=== PATIENT | female | born 1950 | race African-American/Black ===

== ENCOUNTER 2022-04-23 11:27 | Inpatient (IN) | payer OTHER, MEDICARE ==
[~2022-04-23] VITALS: Ht 175.3 cm; Wt 142.9 kg
[2022-04-23] MEDS ORDERED: SODIUM CHLORIDE 0.9% 1,000 ML IV ONE (12:00)
[2022-04-23] MEDS ORDERED: LABETALOL 5MG/ML SYR 20 MG/4 ML SYRINGE IV ONE (12:15)
[2022-04-23 12:53] LABS: CHLORIDE 97 mEq/L (98-107)
[2022-04-23 12:56] LABS: PROTHROMBIN TIME 10.5 sec (9.6-11.0)
[2022-04-23 13:01] LABS: BASOPHILS % 0.8 % (0.0-2.0); BETA HYDROXYBUTYRATE 1.2 mMol/L (0.0-0.3); EOSINOPHILS % 0.1 % (0.0-5.0); ETHANOL BLOOD < 10 mg/dL; HEMATOCRIT. 33.3 % (36.0-48.0); MEAN CORPUSCULAR HEMOGLOBIN 20.5 pg (28.0-32.0); MEAN CORPUSCULAR VOLUME 68.3 fL (81.0-99.0); MEAN PLATELET VOLUME 8.7 fl (7.4-10.4); MONOCYTES % 5.2 % (2.0-8.0); NEUTROPHILS % 79.9 % (40.0-76.0); PLATELET 374 x1000/uL (130-400); RED BLOOD CELL COUNT 4.88 mill/uL (4.2-5.4)
[2022-04-23] MEDS ORDERED: INSULIN REGULAR (HUMULIN R) 300UNITS/3ML VIAL IV ONE (13:30)
[2022-04-23 13:33] LABS: PLATELET ESTIMATE NORMAL
[2022-04-23] MEDS ORDERED: LABETALOL 5MG/ML SYR 20 MG/4 ML SYRINGE IV NR (14:00)
[2022-04-23] MEDS: NITROGLYCERIN 0.1MG/HR PATCH TOP SCH (17:30)
[2022-04-23] MEDS ORDERED: ACETAMINOPHEN 650MG/20.3ML UDC PO PRN (17:45)
[2022-04-23] MEDS ORDERED: ACETAMINOPHEN 325MG TABLET PO PRN (19:30)
[2022-04-23] MEDS ORDERED: PIPERACILLIN/TAZ 3.375G PREMIX 50 ML IV SCH (19:30)
[2022-04-23] MEDS ORDERED: DOCUSATE SODIUM 100MG CAPSULE PO PRN (19:30)
[2022-04-23] MEDS: ATORVASTATIN CALCIUM 40MG TABLET PO SCH (21:00)
[2022-04-23 21:19] VITALS: BP 203/107
[2022-04-23 21:24] VITALS: BP 209/79
[2022-04-23 21:28] VITALS: BP 185/79
[2022-04-23] MEDS: ENOXAPARIN 40MG/0.4ML SYR SUBCUT SCH (21:39)
[2022-04-23] MEDS: FAMOTIDINE 20MG/2ML VIAL IV SCH (21:39)
[2022-04-23 22:00] VITALS: BP 199/85
[2022-04-23] MEDS: NITROGLYCERIN OINT 1GM/INCH UDPKT TD PRN (22:13)
[2022-04-23 22:33] VITALS: BP 195/107
[2022-04-23] MEDS: PIPERACILLIN/TAZOBACTAM 3.375G in DEXT 5% WATER 50ML IV SCH (22:48)
[2022-04-23] MEDS: METOPROLOL TARTRATE 5MG/5ML VIAL IV PRN (22:49)
[2022-04-23 22:54] VITALS: BP 187/78
[2022-04-23] MEDS ORDERED: THIAMINE HCL 100 MG in SODIUM CHLORIDE 0.9% 49 ML IV NR (23:00)
[2022-04-23] MEDS ORDERED: DEXTROSE 50% WATER 50ML SYRINGE IV PRN ×2 (23:00→23:15)
[2022-04-23] MEDS: SODIUM CHLORIDE 0.9% 1,000 ML IV SCH (23:07)
[2022-04-24] VITALS (13 sets, daily range): BP systolic 134–203; BP diastolic 54–128
[2022-04-24] MEDS: LOSARTAN POTASSIUM 100 MG TABLET PO SCH ×2 (02:38→10:04)
[2022-04-24 05:14] LABS: CLARITY URINE CLOUDY (CLEAR); COLOR URINE YELLOW (YELLOW); KETONES URINE 2+ (NEGATIVE); LEUKOCYTE ESTERASE URINE 2+ (NEGATIVE); NITRITE URINE NEGATIVE (NEGATIVE); OCCULT BLOOD URINE 2+ (NEGATIVE); PROTEIN URINE 2+ (NEGATIVE); SPECIFIC GRAVITY URINE 1.024 (1.005-1.030); UROBILINOGEN URINE 0.2 E.U./dL (0.2-1.0)
[2022-04-24 05:36] LABS: *AMPHETAMINES SCREEN URINE NEGATIVE (NEGATIVE); *BARBITURATES SCREEN URINE NEGATIVE (NEGATIVE); *BENZODIAZEPINES SCREEN URINE NEGATIVE (NEGATIVE); *COCAINE SCREEN URINE NEGATIVE (NEGATIVE); CANNABINOID URINE SCREEN NEGATIVE (NEGATIVE); METHADONE URINE SCREEN NEGATIVE (NEGATIVE); OPIATES URINE SCREEN NEGATIVE (NEGATIVE); PHENCYCLIDINE URINE SCREEN NEGATIVE (NEGATIVE)
[2022-04-24] MEDS: PIPERACILLIN/TAZOBACTAM 3.375G in DEXT 5% WATER 50ML IV SCH ×3 (05:47→21:07)
[2022-04-24] MEDS: METOPROLOL TARTRATE 5MG/5ML VIAL IV PRN ×2 (06:34→13:08)
[2022-04-24 06:40] LABS: BASOPHILS % 0.6 % (0.0-2.0); HEMATOCRIT. 27.9 % (36.0-48.0); HEMOGLOBIN. 8.5 g/dL (12.0-16.0); LYMPHOCYTES % 24.2 % (20.0-50.0); MEAN CORPUSCULAR HEMOGLOBIN 21.1 pg (28.0-32.0); MEAN CORPUSCULAR VOLUME 69.3 fL (81.0-99.0); MEAN PLATELET VOLUME 8.5 fl (7.4-10.4); MONOCYTES % 9.3 % (2.0-8.0); NEUTROPHILS % 65.9 % (40.0-76.0); PLATELET 334 x1000/uL (130-400); RED BLOOD CELL COUNT 4.03 mill/uL (4.2-5.4)
[2022-04-24] MEDS ORDERED: BLOOD SUGAR DIAGNOSTIC STRIP TEST SCH (07:30)
[2022-04-24] MEDS: BLOOD SUGAR DIAGNOSTIC STRIP TEST SCH ×4 (07:30→21:57)
[2022-04-24] MEDS ORDERED: INSULIN LISPRO 100 UNITS/ML SUBCUT SCH (08:00)
[2022-04-24 08:39] LABS: VITAMIN B12 SERUM 303 pg/mL (211-911)
[2022-04-24] MEDS: INSULIN LISPRO 100 UNITS/ML SUBCUT SCH ×4 (09:58→22:21)
[2022-04-24] MEDS ORDERED: INSULIN GLARGINE 100 UNITS/ML SUBCUT SCH (10:00)
[2022-04-24] MEDS: ENOXAPARIN 40MG/0.4ML SYR SUBCUT SCH ×2 (10:04→21:06)
[2022-04-24] MEDS: FAMOTIDINE 20MG/2ML VIAL IV SCH ×2 (10:04→21:06)
[2022-04-24] MEDS: ASPIRIN 325MG EC TABLET PO SCH (10:04)
[2022-04-24] MEDS: SODIUM CHLORIDE 0.9% 1,000 ML IV SCH ×3 (10:05→21:28)
[2022-04-24] MEDS: ATORVASTATIN CALCIUM 40MG TABLET PO SCH (21:07)
[2022-04-24] MEDS: METOPROLOL TARTRATE 50MG TABLET PO SCH (21:07)
[2022-04-24] MEDS: INSULIN GLARGINE 100 UNITS/ML SUBCUT SCH (22:21)
[2022-04-25] VITALS (17 sets, daily range): BP systolic 122–214; BP diastolic 46–95
[2022-04-25] MEDS: METOPROLOL TARTRATE 5MG/5ML VIAL IV PRN ×3 (04:33→22:45)
[2022-04-25] MEDS: PIPERACILLIN/TAZOBACTAM 3.375G in DEXT 5% WATER 50ML IV SCH ×3 (05:16→21:30)
[2022-04-25] MEDS: SODIUM CHLORIDE 0.9% 1,000 ML IV SCH ×2 (06:14→21:30)
[2022-04-25 06:16] LABS: HEMATOCRIT 28.7 % (36.0-48.0); HEMOGLOBIN 8.7 g/dL (12.0-16.0); MEAN CORPUSCULAR HEMOGLOBIN 21.2 pg (28.0-32.0); MEAN CORPUSCULAR VOLUME 70.1 fL (81.0-99.0); PLATELET 318 x1000/uL (130-400); RED CELL DISTRIBUTION WIDTH 20.6 % (11.6-14.6)
[2022-04-25] MEDS: BLOOD SUGAR DIAGNOSTIC STRIP TEST SCH ×4 (07:39→20:38)
[2022-04-25] MEDS: ASPIRIN 325MG EC TABLET PO SCH (10:30)
[2022-04-25] MEDS: LOSARTAN POTASSIUM 100 MG TABLET PO SCH (10:31)
[2022-04-25] MEDS: METOPROLOL TARTRATE 50MG TABLET PO SCH ×2 (10:31→20:37)
[2022-04-25] MEDS: FAMOTIDINE 20MG/2ML VIAL IV SCH ×2 (10:32→20:38)
[2022-04-25] MEDS: ENOXAPARIN 40MG/0.4ML SYR SUBCUT SCH ×2 (10:32→20:41)
[2022-04-25] MEDS: INSULIN GLARGINE 100 UNITS/ML SUBCUT SCH ×2 (10:41→21:26)
[2022-04-25] MEDS: INSULIN LISPRO 100 UNITS/ML SUBCUT SCH ×4 (10:42→20:39)
[2022-04-25] MEDS: NITROGLYCERIN 0.1MG/HR PATCH TOP SCH (10:57)
[2022-04-25] MEDS: AMLODIPINE 5MG TABLET PO SCH (20:37)
[2022-04-25] MEDS: ATORVASTATIN CALCIUM 40MG TABLET PO SCH (20:37)
[2022-04-26] VITALS (14 sets, daily range): BP systolic 132–214; BP diastolic 44–95
[2022-04-26] MEDS: NITROGLYCERIN OINT 1GM/INCH UDPKT TD PRN ×2 (01:44→09:24)
[2022-04-26] MEDS: METOPROLOL TARTRATE 5MG/5ML VIAL IV PRN ×2 (04:56→12:15)
[2022-04-26] MEDS: PIPERACILLIN/TAZOBACTAM 3.375G in DEXT 5% WATER 50ML IV SCH (05:20)
[2022-04-26] MEDS: INSULIN LISPRO 100 UNITS/ML SUBCUT SCH ×4 (08:00→21:27)
[2022-04-26 08:29] LABS: HEMATOCRIT. 28.7 % (36.0-48.0); HEMOGLOBIN. 8.7 g/dL (12.0-16.0); MEAN CORPUSCULAR HEMOGLOBIN 21.3 pg (28.0-32.0); MEAN CORPUSCULAR VOLUME 70.3 fL (81.0-99.0); MEAN PLATELET VOLUME 8.3 fl (7.4-10.4); PLATELET 309 x1000/uL (130-400); RED BLOOD CELL COUNT 4.07 mill/uL (4.2-5.4); RED CELL DISTRIBUTION WIDTH 20.9 % (11.6-14.6)
[2022-04-26] MEDS: BLOOD SUGAR DIAGNOSTIC STRIP TEST SCH ×4 (08:51→21:25)
[2022-04-26] MEDS: SODIUM CHLORIDE 0.9% 1,000 ML IV SCH (08:52)
[2022-04-26] MEDS: LOSARTAN POTASSIUM 100 MG TABLET PO SCH (09:22)
[2022-04-26] MEDS: AMLODIPINE 5MG TABLET PO SCH ×2 (09:23→21:25)
[2022-04-26] MEDS: CLONIDINE 0.1MG TABLET PO SCH ×2 (09:25→17:56)
[2022-04-26] MEDS: FAMOTIDINE 20MG/2ML VIAL IV SCH ×2 (09:26→21:25)
[2022-04-26] MEDS: METOPROLOL TARTRATE 50MG TABLET PO SCH ×2 (09:26→21:24)
[2022-04-26] MEDS: ENOXAPARIN 40MG/0.4ML SYR SUBCUT SCH ×2 (09:26→21:25)
[2022-04-26] MEDS: NITROGLYCERIN 0.1MG/HR PATCH TOP SCH (09:29)
[2022-04-26] MEDS: ASPIRIN 325MG EC TABLET PO SCH (09:30)
[2022-04-26] MEDS: INSULIN GLARGINE 100 UNITS/ML SUBCUT SCH ×2 (09:31→21:26)
[2022-04-26 10:56] LABS: PLATELET ESTIMATE NORMAL
[2022-04-26] MEDS: NITROGLYCERIN OINT 1GM/INCH UDPKT TD SCH ×2 (14:18→17:58)
[2022-04-26] MEDS: AMOXICILLIN/POTASSIUM CLAVULANATE 875/125MG TAB PO SCH ×2 (14:24→21:21)
[2022-04-26] MEDS ORDERED: CEPHALEXIN 250MG CAPSULE PO SCH (18:00)
[2022-04-26] MEDS ORDERED: POTASSIUM CHLORIDE 20MEQ TABLET SR PO NR (21:00)
[2022-04-26] MEDS: ATORVASTATIN CALCIUM 40MG TABLET PO SCH (21:22)
[2022-04-27] VITALS (12 sets, daily range): BP systolic 102–198; BP diastolic 25–111
[2022-04-27] MEDS: NITROGLYCERIN OINT 1GM/INCH UDPKT TD SCH ×5 (00:22→23:54)
[2022-04-27] MEDS: METOPROLOL TARTRATE 5MG/5ML VIAL IV PRN (05:38)
[2022-04-27] MEDS: BLOOD SUGAR DIAGNOSTIC STRIP TEST SCH ×4 (07:30→21:00)
[2022-04-27] MEDS: INSULIN LISPRO 100 UNITS/ML SUBCUT SCH ×4 (08:00→21:37)
[2022-04-27] MEDS: AMOXICILLIN/POTASSIUM CLAVULANATE 875/125MG TAB PO SCH ×2 (09:47→21:35)
[2022-04-27] MEDS: AMLODIPINE 5MG TABLET PO SCH ×2 (09:48→21:36)
[2022-04-27] MEDS: LOSARTAN POTASSIUM 100 MG TABLET PO SCH (09:48)
[2022-04-27] MEDS: ASPIRIN 325MG EC TABLET PO SCH (09:48)
[2022-04-27] MEDS: ENOXAPARIN 40MG/0.4ML SYR SUBCUT SCH ×2 (09:49→21:34)
[2022-04-27] MEDS: FAMOTIDINE 20MG/2ML VIAL IV SCH ×2 (09:49→21:35)
[2022-04-27] MEDS: METOPROLOL TARTRATE 50MG TABLET PO SCH (09:49)
[2022-04-27] MEDS: INSULIN GLARGINE 100 UNITS/ML SUBCUT SCH ×2 (10:17→21:38)
[2022-04-27] MEDS: CLONIDINE 0.2MG TABLET PO SCH ×2 (10:22→17:19)
[2022-04-27] MEDS: NITROGLYCERIN 0.1MG/HR PATCH TOP SCH ×2 (10:41→12:25)
[2022-04-27] MEDS: ATORVASTATIN CALCIUM 40MG TABLET PO SCH (21:35)
[2022-04-27] MEDS: METOPROLOL TARTRATE 100MG TABLET PO SCH (21:37)
[2022-04-28] VITALS (16 sets, daily range): BP systolic 127–194; BP diastolic 58–93
[2022-04-28] MEDS: NITROGLYCERIN OINT 1GM/INCH UDPKT TD SCH ×4 (05:53→23:32)
[2022-04-28] MEDS: BLOOD SUGAR DIAGNOSTIC STRIP TEST SCH ×4 (07:30→20:30)
[2022-04-28] MEDS: INSULIN LISPRO 100 UNITS/ML SUBCUT SCH ×4 (08:00→20:30)
[2022-04-28] MEDS: ENOXAPARIN 40MG/0.4ML SYR SUBCUT SCH ×2 (09:02→20:36)
[2022-04-28] MEDS: LOSARTAN POTASSIUM 100 MG TABLET PO SCH (09:03)
[2022-04-28] MEDS: AMOXICILLIN/POTASSIUM CLAVULANATE 875/125MG TAB PO SCH ×2 (09:03→20:36)
[2022-04-28] MEDS: CLONIDINE 0.2MG TABLET PO SCH ×2 (09:03→18:13)
[2022-04-28] MEDS: METOPROLOL TARTRATE 100MG TABLET PO SCH ×2 (09:03→20:38)
[2022-04-28] MEDS: ASPIRIN 325MG EC TABLET PO SCH (09:03)
[2022-04-28] MEDS: FAMOTIDINE 20MG/2ML VIAL IV SCH (09:04)
[2022-04-28] MEDS: AMLODIPINE 5MG TABLET PO SCH ×2 (09:04→20:37)
[2022-04-28] MEDS: INSULIN GLARGINE 100 UNITS/ML SUBCUT SCH ×2 (14:50→23:32)
[2022-04-28] MEDS: METOPROLOL TARTRATE 5MG/5ML VIAL IV PRN (18:19)
[2022-04-28] MEDS: ATORVASTATIN CALCIUM 40MG TABLET PO SCH (20:36)
[2022-04-28] MEDS ORDERED: FAMOTIDINE 20MG TABLET PO SCH (21:00)
[2022-04-29] VITALS (8 sets, daily range): BP systolic 128–183; BP diastolic 54–81
[2022-04-29] MEDS: METOPROLOL TARTRATE 5MG/5ML VIAL IV PRN ×2 (04:05→11:15)
[2022-04-29] MEDS: NITROGLYCERIN OINT 1GM/INCH UDPKT TD SCH (05:34)
[2022-04-29 06:46] LABS: BASOPHILS % 0.9 % (0.0-2.0); HEMOGLOBIN. 8.5 g/dL (12.0-16.0); LYMPHOCYTES % 35.6 % (20.0-50.0); MEAN CORPUSCULAR HEMOGLOBIN 21.3 pg (28.0-32.0); MEAN CORPUSCULAR VOLUME 70.2 fL (81.0-99.0); MEAN PLATELET VOLUME 8.7 fl (7.4-10.4); NEUTROPHILS % 45.5 % (40.0-76.0); PLATELET 289 x1000/uL (130-400); RED BLOOD CELL COUNT 3.99 mill/uL (4.2-5.4); RED CELL DISTRIBUTION WIDTH 21.6 % (11.6-14.6)
[2022-04-29] MEDS: BLOOD SUGAR DIAGNOSTIC STRIP TEST SCH ×2 (07:37→12:17)
[2022-04-29] MEDS: INSULIN LISPRO 100 UNITS/ML SUBCUT SCH ×2 (08:08→12:04)
[2022-04-29] MEDS: ENOXAPARIN 40MG/0.4ML SYR SUBCUT SCH (08:09)
[2022-04-29] MEDS: LOSARTAN POTASSIUM 100 MG TABLET PO SCH (08:10)
[2022-04-29] MEDS: AMOXICILLIN/POTASSIUM CLAVULANATE 875/125MG TAB PO SCH (08:10)
[2022-04-29] MEDS: ASPIRIN 325MG EC TABLET PO SCH (08:11)
[2022-04-29] MEDS: AMLODIPINE 5MG TABLET PO SCH (08:11)
[2022-04-29] MEDS: METOPROLOL TARTRATE 100MG TABLET PO SCH (08:12)
[2022-04-29] MEDS: CLONIDINE 0.2MG TABLET PO SCH (08:13)
[2022-04-29] MEDS: NITROGLYCERIN 0.1MG/HR PATCH TOP SCH (08:20)
[2022-04-29] MEDS: INSULIN GLARGINE 100 UNITS/ML SUBCUT SCH (10:39)
[2022-04-29] MEDS ORDERED: ASPI-867 PO (13:15)
[2022-04-29] MEDS ORDERED: AMOX1TAB16 PO (13:15)
[2022-04-29] MEDS ORDERED: METO100T16 PO (13:15)
[2022-04-29] MEDS ORDERED: AMLO5TAB88 PO (13:15)
[2022-04-29] MEDS ORDERED: LIP40 PO (13:15)
[2022-04-29] MEDS ORDERED: DOCU-150 PO (13:15)
[2022-04-29] MEDS ORDERED: LANTUSUD SUBCUT (13:15)
[2022-04-29] MEDS ORDERED: LOSA100T3 PO (13:15)
[2022-04-29] MEDS ORDERED: CLON0.2T PO (13:15)
== END 2022-04-29 17:14 | disposition home health service (06) | DRG 64 ==
LOC: ER 11:27 → 5EST 14:51 → EDBEDREQSVC 14:55 → ENRESERV 17:04
PROVIDERS: ADMIT Internal Medicine Pulmonary Disease; ATTEND Internal Medicine Pulmonary Disease
PROC: 4A00X4Z Measurement of Central Nervous Electrical Activity, External Approach (ICD-10-PCS; principal; 2022-04-24)
DX: I63.9 Cerebral infarction, unspecified (principal); G93.41 Metabolic encephalopathy; J69.0 Pneumonitis due to inhalation of food and vomit; Z68.42 Body mass index [BMI] 45.0-49.9, adult; N39.0 Urinary tract infection, site not specified; N17.9 Acute kidney failure, unspecified; G81.91 Hemiplegia, unspecified affecting right dominant side; I16.1 Hypertensive emergency; R47.01 Aphasia; E11.65 Type 2 diabetes mellitus with hyperglycemia; E66.01 Morbid (severe) obesity due to excess calories; D64.9 Anemia, unspecified; I51.7 Cardiomegaly; B96.20 Unspecified Escherichia coli [E. coli] as the cause of diseases classified elsewhere; Z79.4 Long term (current) use of insulin
CPT/HCPCS: 36415; 70551; 71045; 80048; 80053; 80061; 80305; 80320; 81003; 82010; 82607; 82746; 82962; 83036; 83540; 83550; 84443; 84484; 85025; 85027; 87077; 87186; 92610; 93005; 93306; 93880; 95816; 97116; 97162; 97530; 99285; A6261; J1650; J1815; J2543; J3411; J3490; J7030; J7060; A4315; G0480